=== PATIENT | male | born 1980 | race Two or more races ===

== ENCOUNTER 2021-01-26 23:20 | Emergency (ER) | payer OTHER ==
[~2021-01-26] VITALS: Ht 175.3 cm; Wt 73.5 kg
[2021-01-26] MEDS ORDERED: DISCOVISC DISP S1 ML (23:31)
[2021-01-26] MEDS ORDERED: QUETIAPINE FUM400 M1 (23:33)
[2021-01-26] MEDS ORDERED: LAMOTRIGINE (O1 EACH (23:33)
[2021-01-27] MEDS ORDERED: NAPROXEN375 MG PO (03:02)
[2021-01-27] MEDS ORDERED: CARAFATE1 GM PO (03:02)
[2021-01-27] MEDS ORDERED: PROTONIX20 MG PO (03:02)
[2021-01-27] MEDS ORDERED: PEPCID AC20 MG PO (03:02)
[2021-01-27] MEDS ORDERED: MEDROLPACK PO (03:02)
== END 2021-01-27 03:08 | disposition home or self-care (01) ==
LOC: ER 23:20
DX: J02.9 Acute pharyngitis, unspecified (principal); R10.84 Generalized abdominal pain; R21 Rash and other nonspecific skin eruption; Z11.52 Encounter for screening for COVID-19

== ENCOUNTER 2021-07-01 10:52 | Emergency (ER) | payer OTHER ==
[~2021-07-01] VITALS: Ht 170.2 cm; Wt 73.0 kg
[~2021-07-01 10:52] MED LIST: CARAFATE1 GM PO; DISCOVISC DISP S1 ML; LAMOTRIGINE (O1 EACH; MEDROLPACK PO; NAPROXEN375 MG PO; PEPCID AC20 MG PO; PROTONIX20 MG PO; QUETIAPINE FUM400 M1
[2021-07-01] MEDS ORDERED: MULTI VITAMIN1 EACH (11:06)
== END 2021-07-01 16:05 | disposition home or self-care (01) ==
LOC: ER 10:52
DX: N39.0 Urinary tract infection, site not specified (principal)

== ENCOUNTER 2021-08-31 19:26 | Emergency (ER) | payer OTHER ==
[~2021-08-31] VITALS: Ht 177.8 cm; Wt 75.3 kg
[~2021-08-31 19:26] MED LIST changes: +MULTI VITAMIN1 EACH
[2021-08-31] MEDS ORDERED: TYLENOL (20:13)
== END 2021-08-31 22:05 | disposition home or self-care (01) ==
LOC: ER 19:26
DX: A64 Unspecified sexually transmitted disease (principal); N39.0 Urinary tract infection, site not specified

== ENCOUNTER 2021-12-24 08:45 | Emergency (ER) | payer OTHER ==
[~2021-12-24] VITALS: Ht 175.3 cm; Wt 78.0 kg
[~2021-12-24 08:45] MED LIST changes: +TYLENOL
== END 2021-12-24 09:27 | disposition home or self-care (01) ==
LOC: ER 08:45
DX: R20.0 Anesthesia of skin (principal)

== ENCOUNTER 2022-01-01 08:34 | Emergency (ER) | payer OTHER ==
[~2022-01-01] VITALS: Ht 175.3 cm; Wt 77.1 kg
== END 2022-01-01 11:56 | disposition home or self-care (01) ==
LOC: ER 08:34
DX: N20.0 Calculus of kidney (principal)

== ENCOUNTER 2022-02-05 08:48 | Outpatient (CLI) | payer OTHER | END 2022-02-05 08:55 | disposition home or self-care (01) | LOC: RAD 08:48 | PROVIDERS: ATTEND Urology | DX: N20.0 Calculus of kidney (principal) ==

== ENCOUNTER 2022-07-29 09:53 | Emergency (ER) | payer OTHER ==
[~2022-07-29] VITALS: Ht 175.3 cm; Wt 81.6 kg
== END 2022-07-29 10:37 | disposition home or self-care (01) ==
LOC: ER 09:53
DX: J03.90 Acute tonsillitis, unspecified (principal)

== ENCOUNTER 2022-10-06 11:13 | Emergency (ER) | payer OTHER ==
[~2022-10-06] VITALS: Ht 157.5 cm; Wt 81.2 kg
[2022-10-06] MEDS ORDERED: MIRALAX510 GM PO (17:11)
== END 2022-10-06 17:14 | disposition home or self-care (01) ==
LOC: ER 11:13
DX: K59.00 Constipation, unspecified (principal); R10.31 Right lower quadrant pain; N20.0 Calculus of kidney

== ENCOUNTER 2023-01-25 10:21 | Emergency (ER) | payer OTHER ==
[~2023-01-25] VITALS: Ht 175.3 cm; Wt 81.6 kg
[~2023-01-25 10:21] MED LIST changes: +MIRALAX510 GM PO; +PEPCID AC20 MG
[2023-01-25] MEDS ORDERED: DESCOVY 200-251 EACH (10:41)
[2023-01-25] MEDS ORDERED: CIPRO500 MG PO (15:43)
== END 2023-01-25 17:09 | disposition home or self-care (01) ==
LOC: ER 10:21
DX: B34.9 Viral infection, unspecified (principal); N39.0 Urinary tract infection, site not specified

== ENCOUNTER 2023-02-16 15:58 | Emergency (ER) | payer OTHER ==
[~2023-02-16] VITALS: Ht 177.8 cm; Wt 83.9 kg
[~2023-02-16 15:58] MED LIST changes: +CIPRO500 MG PO; +DESCOVY 200-251 EACH
== END 2023-02-16 17:16 | disposition home or self-care (01) ==
LOC: ER 15:58
DX: R53.81 Other malaise (principal); R05.9 Cough, unspecified

== ENCOUNTER 2023-07-11 10:18 | Emergency (ER) | payer OTHER ==
[~2023-07-11] VITALS: Ht 175.3 cm; Wt 81.6 kg
== END 2023-07-11 12:31 | disposition home or self-care (01) ==
LOC: ER
DX: J02.9 Acute pharyngitis, unspecified (principal)

== ENCOUNTER 2023-08-11 06:16 | Emergency (ER) | payer OTHER ==
[~2023-08-11] VITALS: Ht 175.3 cm; Wt 83.9 kg
[2023-08-11 08:07] LABS: HEMATOCRIT 38.7 % (39.0-48.0); HEMOGLOBIN 13.1 g/dL (13-16.00); MEAN CELL VOLUME 87.6 fL (80.0-100.00); MEAN CORPUSCULAR HEMOGLOBIN 29.7 pg (27.00-32.0); MEAN CORPUSCULAR HGB CONC 33.9 g/dl (32.0-36.0); PLATELET COUNT 193 K/uL (150-450); RED BLOOD COUNT 4.42 M/uL (4.00-6.00); RED CELL DISTRIBUTION WIDTH 13.2 % (11.5-14.5)
[2023-08-11 08:18] LABS: PH,URINE 5.5 (5.0-8.0); URINE APPEARANCE Clear; URINE BILIRRUBIN Negative (NEGATIVE); URINE BLOOD Small; URINE COLOR Yellow; URINE GLUCOSE Negative (NEGATIVE); URINE LEUKOCYTE Negative; URINE NITRATE Negative; URINE PROTEIN Negative (NEGATIVE); URINE UROBILINOGEN 0.2 E.U./dl
[2023-08-11 08:21] LABS: URINE BACTERIA 41.5 uL (0.0-1933); URINE EPITHELIAL CELLS 3.8 uL (0.0-38.8); URINE RBC 9.4 uL (0.0-20.8); URINE WBC 3.8 uL (0.0-23.2)
[2023-08-11 08:46] LABS: CALCIUM 9.2 mg/dL (8.5-10.1); CREATININE SERUM 0.92 mg/dL (0.70-1.30); GFR 90.22; POTASSIUM 3.61 mEq/L (3.5-5.1)
== END 2023-08-11 11:17 | disposition home or self-care (01) ==
LOC: ER 06:16
PROVIDERS: General Practice
DX: R19.7 Diarrhea, unspecified (principal)

== ENCOUNTER 2023-09-13 19:50 | Emergency (ER) | payer OTHER ==
[~2023-09-13] VITALS: Ht 175.3 cm; Wt 81.6 kg
== END 2023-09-13 22:03 | disposition home or self-care (01) ==
LOC: ER 19:50
DX: J02.8 Acute pharyngitis due to other specified organisms (principal)

== ENCOUNTER 2023-12-15 16:41 | Emergency (ER) | payer OTHER ==
[~2023-12-15] VITALS: Ht 175.3 cm; Wt 81.6 kg
[2023-12-15] MEDS ORDERED: 0.9 % SODIUM CHLORIDE 1,000 ML IV ONE (18:45)
[2023-12-15] MEDS ORDERED: ACETAMINOPHEN 500 MG GEL..CAP PO ONE (18:45)
[2023-12-15] MEDS ORDERED: KETOROLAC TROMETHAMINE 30 MG VIAL IV ONE (18:45)
[2023-12-15] MEDS ORDERED: FAMOTIDINE/PF 20 MG/2 ML VIAL IV ONE (18:45)
[2023-12-15 19:17] LABS: HEMATOCRIT 38.4 % (39.0-48.0); HEMOGLOBIN 13.3 g/dL (13-16.00); MEAN CELL VOLUME 87.3 fL (80.0-100.00); MEAN CORPUSCULAR HEMOGLOBIN 30.2 pg (27.00-32.0); MEAN CORPUSCULAR HGB CONC 34.6 g/dl (32.0-36.0); PLATELET COUNT 155 K/uL (150-450); RED CELL DISTRIBUTION WIDTH 13.2 % (11.5-14.5)
[2023-12-15 19:53] LABS: ALBUMIN 4.2 gm/dL (3.4-5.0); BILIRUBIN TOTAL 1.02 mg/dL (0.3-1.2); CREATININE SERUM 1.14 mg/dL (0.70-1.30); GFR 70.44; POTASSIUM 3.49 mEq/L (3.5-5.1); TOTAL PROTEIN 8.2 gm/dL (6.4-8.2)
[2023-12-15 20:00] LABS: URINE APPEARANCE Clear; URINE BILIRRUBIN Negative (NEGATIVE); URINE BLOOD Negative; URINE COLOR Yellow; URINE GLUCOSE Negative (NEGATIVE); URINE LEUKOCYTE Trace; URINE NITRATE Negative; URINE PROTEIN Negative (NEGATIVE)
[2023-12-15 20:04] LABS: URINE BACTERIA 7.5 uL (0.0-1933); URINE RBC 19.1 uL (0.0-20.8); URINE WBC 3.3 uL (0.0-23.2)
[2023-12-15 20:07] LABS: URINE EPITHELIAL CELLS 1.3 uL (0.0-38.8)
[2023-12-15] MEDS ORDERED: CEFTRIAXONE SODIUM 2,000 MG VIAL IV ONE (20:30)
[2023-12-15] MEDS ORDERED: CIPRO500 MG PO (22:10)
== END 2023-12-15 22:40 | disposition home or self-care (01) ==
LOC: ER 16:41
PROVIDERS: Nurse Practitioner Family
DX: R53.81 Other malaise (principal); N30.90 Cystitis, unspecified without hematuria; R50.9 Fever, unspecified; Z20.822 Contact with and (suspected) exposure to COVID-19